=== PATIENT | female | born 1990 | race Hispanic/Latino ===

== ENCOUNTER 2018-04-20 12:57 | Emergency (ER) | payer MEDICAID, OTHER | END 2018-04-20 13:47 | disposition home or self-care (01) | LOC: EDH 12:57 | DX: E65 Localized adiposity (principal); R19.05 Periumbilic swelling, mass or lump; Z98.51 Tubal ligation status | CPT/HCPCS: 99281 ==

== ENCOUNTER 2021-11-08 10:00 | Inpatient (IN) | payer OTHER ==
[~2021-11-08] VITALS: Ht 149.9 cm; Wt 70.7 kg
[2021-11-08] MEDS ORDERED: ACETAMINOPHEN 500 MG TABLET PO ONE (10:30)
[2021-11-08 10:53] LABS: APPEARANCE,URINE SL CLOUDY (CLEAR); BILIRUBIN,URINE SMALL (NEGATIVE); COLOR,URINE YELLOW (YELLOW); GLUCOSE, URINE (UA) NEGATIVE (NEGATIVE); KETONES,URINE 5 mg/dL (NEGATIVE); LEUKOCYTE ESTERASE ,URINE SMALL (NEGATIVE); NITRATE,URINE NEGATIVE (NEGATIVE); OCCULT BLOOD,URINE LARGE (NEGATIVE); PROTEIN,URINE 100 mg/dL (NEGATIVE)
[2021-11-08 11:09] LABS: BASOPHILS % (AUTO) 0.2 % (0.0-5.0); EOSINOPHILS % (AUTO) 0.1 % (0.0-8.0); HEMATOCRIT 34.7 % (36-48); LYMPHOCYTES % (AUTO) 7.5 % (21.0-51.0); MEAN CORPUSCULAR HGB CONC 34.3 g/dL (32.0-36.0); MEAN CORPUSCULAR VOLUME 84.6 fL (79-99); MONOCYTES % (AUTO) 8.3 % (3.0-13.0); NEUTROPHILS % (AUTO) 83.4 % (40.0-77.0); PLATELET COUNT (AUTO) 363 K/uL (130-400); RED CELL DISTRIBUTION WIDTH 13.2 % (11.0-15.5)
[2021-11-08 11:12] LABS: BACTERIA,URINE Few /HPF (None Seen); MUCUS,URINE Few LPF (None Seen); RBC,URINE 51-100 /HPF (0-1); SQUAMOUS EPITHELIAL CELL,UR Rare /HPF (0-2)
[2021-11-08 11:20] LABS: ALBUMIN 3.4 g/dL (3.5-5.0); CREATININE 0.8 mg/dL (0.5-1.5); TOTAL PROTEIN, SERUM 9.1 g/dL (6.0-8.3)
[2021-11-08 11:26] LABS: POTASSIUM 2.8 mmol/L (3.5-5.1)
[2021-11-08] MEDS ORDERED: 0.9%NACL 1000ML 1,000 ML IV SCH (12:00)
[2021-11-08] MEDS ORDERED: CEFTRIAXONE 2GM VIAL IVP ONE (13:00)
[2021-11-08] MEDS ORDERED: POTASSIUM BICARB/CIT AC 25 MEQ TABLET.EFF PO ONE (13:00)
[2021-11-08] MEDS ORDERED: ACETAMINOPHEN 325 MG TAB PO PRN (14:30)
[2021-11-08] MEDS ORDERED: ONDANSETRON 4MG INJ IV PRN (14:30)
[2021-11-08] MEDS ORDERED: CEFTRIAXONE 1G VIAL IV SCH (14:30)
[2021-11-08] MEDS ORDERED: DiphenhydrAMINE HCL 50 MG/ML VIAL IV PRN (14:30)
[2021-11-08] MEDS ORDERED: POTASSIUM CHLORIDE 20MEQ/100ML 100 ML IV PRN (15:00)
[2021-11-08] MEDS ORDERED: LIDOCAINE HCL-MPF 1% 2ML VIAL IV PRN (15:00)
[2021-11-08] MEDS: LACTATED RINGERS 1000ML 1,000 ML IV SCH (15:04)
[2021-11-08 15:34] LABS: HEMOGLOBIN A1C 5.4 % (4.0-6.0)
[2021-11-08 16:59] VITALS: BP 121/74
[2021-11-08 17:01] LABS: CREATININE 0.7 mg/dL (0.5-1.5); POTASSIUM 3.2 mmol/L (3.5-5.1)
[2021-11-08] MEDS: POTASSIUM CHLORIDE 10% ELIXIR 20 MEQ/15 ML UDCUP PO PRN ×2 (17:44→20:40)
[2021-11-08] MEDS: FAMOTIDINE 20MG TAB PO SCH (20:39)
[2021-11-08] MEDS: ACETAMINOPHEN 325 MG TAB PO PRN (20:40)
[2021-11-08 20:48] VITALS: BP 123/74
[2021-11-09] VITALS: BP 103/57
[2021-11-09 04:00] VITALS: BP 125/103
[2021-11-09] MEDS: ACETAMINOPHEN 325 MG TAB PO PRN (04:27)
[2021-11-09] MEDS: LACTATED RINGERS 1000ML 1,000 ML IV SCH ×2 (04:27→17:10)
[2021-11-09 05:21] LABS: HEMATOCRIT 31.1 % (36-48); MEAN CORPUSCULAR HEMOGLOBIN 28.7 pg (27.0-33.0); MEAN CORPUSCULAR HGB CONC 32.8 g/dL (32.0-36.0); MEAN CORPUSCULAR VOLUME 87.4 fL (79-99); RED BLOOD CELL COUNT(AUTO) 3.56 MIL/uL (4.00-5.50); RED CELL DISTRIBUTION WIDTH 13.3 % (11.0-15.5); WHITE BLOOD COUNT (AUTO) 17.9 K/uL (4.8-10.8)
[2021-11-09 05:37] LABS: CREATININE 0.7 mg/dL (0.5-1.5); POTASSIUM 3.4 mmol/L (3.5-5.1)
[2021-11-09] MEDS: POTASSIUM CHLORIDE 10% ELIXIR 20 MEQ/15 ML UDCUP PO PRN (06:51)
[2021-11-09 07:54] VITALS: BP 108/72
[2021-11-09] MEDS: FAMOTIDINE 20MG TAB PO SCH ×2 (10:30→21:01)
[2021-11-09] MEDS: ENOXAPARIN SODIUM 40 MG/0.4 ML SYRINGE SQ SCH (10:30)
[2021-11-09] MEDS: BENZONATATE 100 MG CAPSULE PO PRN (11:20)
[2021-11-09 12:00] VITALS: BP 110/75
[2021-11-09] MEDS: ACYCLOVIR 200 MG CAPSULE PO SCH ×2 (14:04→21:06)
[2021-11-09] MEDS: CEFTRIAXONE 2GM VIAL IVP SCH (14:05)
[2021-11-09] MEDS ORDERED: DiphenhydrAMINE HCL 50 MG/ML VIAL IV PRN (14:30)
[2021-11-09 16:00] VITALS: BP 128/77
[2021-11-09] MEDS ORDERED: AZITHROMYCIN 250 MG TABLET PO SCH (18:00)
[2021-11-09 20:00] VITALS: BP 126/76
[2021-11-10] VITALS (7 sets, daily range): BP systolic 118–131; BP diastolic 77–88
[2021-11-10] MEDS: ACETAMINOPHEN 325 MG TAB PO PRN (05:33)
[2021-11-10 05:58] LABS: HEMATOCRIT 33.6 % (36-48); MEAN CORPUSCULAR HEMOGLOBIN 28.3 pg (27.0-33.0); MEAN CORPUSCULAR HGB CONC 32.1 g/dL (32.0-36.0); RED BLOOD CELL COUNT(AUTO) 3.82 MIL/uL (4.00-5.50); RED CELL DISTRIBUTION WIDTH 13.3 % (11.0-15.5); WHITE BLOOD COUNT (AUTO) 16.9 K/uL (4.8-10.8)
[2021-11-10 06:04] LABS: CREATININE 0.6 mg/dL (0.5-1.5); POTASSIUM 3.4 mmol/L (3.5-5.1)
[2021-11-10] MEDS: FAMOTIDINE 20MG TAB PO SCH ×2 (08:58→21:49)
[2021-11-10] MEDS: BENZONATATE 100 MG CAPSULE PO PRN (08:58)
[2021-11-10] MEDS: ACYCLOVIR 200 MG CAPSULE PO SCH ×3 (08:59→21:49)
[2021-11-10] MEDS: ENOXAPARIN SODIUM 40 MG/0.4 ML SYRINGE SQ SCH (08:59)
[2021-11-10 09:08] LABS: RAPID PLASMA REAGIN REACTIVE (NONREACTIVE); RAPID PLASMA REAGIN TITER REACTIVE >1:16 (NONREACTIVE)
[2021-11-10] MEDS: KCL 20 MEQ ERTAB PO PRN ×2 (09:30→16:54)
[2021-11-10] MEDS: CEFTRIAXONE 2GM VIAL IVP SCH (14:54)
[2021-11-10] MEDS ORDERED: ACETAMINOPHEN 325 MG TAB PO PRN (17:30)
[2021-11-11 03:59] VITALS: BP 130/84
[2021-11-11 07:25] VITALS: BP 125/79
[2021-11-11] MEDS: ACYCLOVIR 200 MG CAPSULE PO SCH ×3 (10:10→21:00)
[2021-11-11] MEDS: FAMOTIDINE 20MG TAB PO SCH ×2 (10:10→21:02)
[2021-11-11] MEDS: ENOXAPARIN SODIUM 40 MG/0.4 ML SYRINGE SQ SCH (10:10)
[2021-11-11 12:00] VITALS: BP 125/72
[2021-11-11 12:22] LABS: MEAN CORPUSCULAR HEMOGLOBIN 28.9 pg (27.0-33.0); MEAN CORPUSCULAR VOLUME 87.5 fL (79-99); RED BLOOD CELL COUNT(AUTO) 3.77 MIL/uL (4.00-5.50); RED CELL DISTRIBUTION WIDTH 13.5 % (11.0-15.5); WHITE BLOOD COUNT (AUTO) 15.7 K/uL (4.8-10.8)
[2021-11-11 12:28] LABS: CREATININE 0.6 mg/dL (0.5-1.5); POTASSIUM 3.6 mmol/L (3.5-5.1)
[2021-11-11] MEDS: CEFTRIAXONE 2GM VIAL IVP SCH (14:35)
[2021-11-11 15:15] VITALS: BP 127/85
[2021-11-11 20:02] VITALS: BP 118/83
[2021-11-11 23:19] VITALS: BP 126/85
[2021-11-12 03:42] VITALS: BP 120/80
[2021-11-12 05:39] LABS: HEMATOCRIT 32.6 % (36-48); MEAN CORPUSCULAR HEMOGLOBIN 28.8 pg (27.0-33.0); MEAN CORPUSCULAR HGB CONC 32.8 g/dL (32.0-36.0); MEAN CORPUSCULAR VOLUME 87.6 fL (79-99); RED BLOOD CELL COUNT(AUTO) 3.72 MIL/uL (4.00-5.50); RED CELL DISTRIBUTION WIDTH 13.2 % (11.0-15.5); WHITE BLOOD COUNT (AUTO) 12.4 K/uL (4.8-10.8)
[2021-11-12 05:50] LABS: CREATININE 0.6 mg/dL (0.5-1.5); POTASSIUM 3.6 mmol/L (3.5-5.1)
[2021-11-12 08:00] VITALS: BP 125/78
[2021-11-12] MEDS: ACYCLOVIR 200 MG CAPSULE PO SCH ×3 (09:26→21:09)
[2021-11-12] MEDS: FAMOTIDINE 20MG TAB PO SCH ×2 (09:26→21:09)
[2021-11-12] MEDS: ENOXAPARIN SODIUM 40 MG/0.4 ML SYRINGE SQ SCH (09:26)
[2021-11-12 11:49] VITALS: BP 118/77
[2021-11-12] MEDS: CEFTRIAXONE 2GM VIAL IVP SCH (15:06)
[2021-11-12 16:00] VITALS: BP 125/88
[2021-11-12] MEDS: KCL 20 MEQ ERTAB PO PRN (18:22)
[2021-11-12 20:30] VITALS: BP 116/76
[2021-11-12 22:40] VITALS: BP 118/69
[2021-11-13 03:23] VITALS: BP 107/70
[2021-11-13 05:34] LABS: BASOPHILS % (AUTO) 0.4 % (0.0-5.0); EOSINOPHILS % (AUTO) 2.1 % (0.0-8.0); HEMATOCRIT 32.8 % (36-48); LYMPHOCYTES % (AUTO) 25.5 % (21.0-51.0); MEAN CORPUSCULAR HEMOGLOBIN 28.3 pg (27.0-33.0); MEAN CORPUSCULAR HGB CONC 32.3 g/dL (32.0-36.0); MEAN CORPUSCULAR VOLUME 87.5 fL (79-99); MONOCYTES % (AUTO) 10.2 % (3.0-13.0); NEUTROPHILS % (AUTO) 61.3 % (40.0-77.0); PLATELET COUNT (AUTO) 436 K/uL (130-400); RED BLOOD CELL COUNT(AUTO) 3.75 MIL/uL (4.00-5.50); RED CELL DISTRIBUTION WIDTH 13.3 % (11.0-15.5)
[2021-11-13 05:41] LABS: CREATININE 0.7 mg/dL (0.5-1.5); POTASSIUM 3.9 mmol/L (3.5-5.1)
[2021-11-13 08:00] VITALS: BP 115/70
[2021-11-13] MEDS: ACYCLOVIR 200 MG CAPSULE PO SCH (08:16)
[2021-11-13] MEDS: FAMOTIDINE 20MG TAB PO SCH (08:16)
[2021-11-13] MEDS: ENOXAPARIN SODIUM 40 MG/0.4 ML SYRINGE SQ SCH (08:17)
[2021-11-13 11:27] VITALS: BP 112/78
[2021-11-13] MEDS ORDERED: PENICILLIN G BENZATHINE LA 1.2 MILUNITS/2 ML SYG IM SCH (12:00)
[2021-11-14 13:13] LABS: HERPES SIMPLEX VIRUS-1 BY PCR Negative (Negative); HERPES SIMPLEX VIRUS-2 BY PCR Negative (Negative)
== END 2021-11-13 14:15 | disposition home or self-care (01) | DRG 871 ==
LOC: EDH 10:00 → EDHIP 10:01 → 3CH 15:28
PROVIDERS: ADMIT Hospitalist; ATTEND Hospitalist
DX: A41.50 Gram-negative sepsis, unspecified (principal); J18.9 Pneumonia, unspecified organism; N39.0 Urinary tract infection, site not specified; E87.1 Hypo-osmolality and hyponatremia; N10 Acute pyelonephritis; Z20.822 Contact with and (suspected) exposure to COVID-19; E66.9 Obesity, unspecified; A53.9 Syphilis, unspecified; L25.9 Unspecified contact dermatitis, unspecified cause; E86.0 Dehydration; E87.6 Hypokalemia; I10 Essential (primary) hypertension; Z83.3 Family history of diabetes mellitus; Z82.5 Family history of asthma and other chronic lower respiratory diseases; Z82.49 Family history of ischemic heart disease and other diseases of the circulatory system; Z82.3 Family history of stroke; Z82.0 Family history of epilepsy and other diseases of the nervous system; Z68.31 Body mass index [BMI] 31.0-31.9, adult
CPT/HCPCS: 36415; 76770; 80048; 80053; 81001; 81025; 83036; 83605; 83735; 84145; 85025; 85027; 86592; 86701; 86780; 87040; 87088; 87390; 87486; 87491; 87529; 87536; 87591; 87635; 87797; 87804; 87880; C9803; G0378; J0561; J0696; J1650; J2405; J7120